=== PATIENT | male | born 1985 | race Caucasian/White ===

== ENCOUNTER 2019-02-10 05:10 | Emergency (ER) | payer OTHER ==
[2019-02-10] MEDS ORDERED: DEXAMETHASONE 10 MG/ML VIAL ONE (05:59)
[2019-02-10] MEDS ORDERED: DIAZEPAM 5 MG TABLET ONE (05:59)
[2019-02-10] MEDS ORDERED: MORPHINE 4 MG/ML SYR ONE (06:00)
[2019-02-10] MEDS ORDERED: ONDANSETRON 4 MG/2 ML VIAL ONE (06:00)
[2019-02-10] MEDS ORDERED: NA CHLORIDE 0.9% 1,000 ML ONE (06:00)
[2019-02-10 06:12] LABS: Absolute Lymphocytes (CBC) 1.9 K/uL (0.7-4.9); Absolute Monocytes 1.1 K/uL (0.1-1.3); Absolute Neutrophil 9.4 K/uL (1.8-8.0); Basophils % 0.4 % (0-1.3); Eosinophils % 0.9 % (0-4.4); Hematocrit 45.5 % (39.6-49.0); MPV 9.4 fL (7.6-11.3); Monocytes % 9.1 % (3.3-12.3); RBC Red Blood Cell Count 5.12 M/uL (4.33-5.43)
[2019-02-10] MEDS ORDERED: KETOROLAC 30 MG/ML INJ ONE (06:30)
[2019-02-10 06:36] LABS: Albumin 4.1 g/dL (3.4-5.0); Bilirubin Total 2.9 mg/dL (0.2-1.0); Potassium 3.9 mmol/L (3.5-5.1); Protein, Total 7.2 g/dL (6.4-8.2)
[2019-02-10 07:39] LABS: Urine Blood NEGATIVE (NEG); Urine Glucose NEGATIVE (NEG); Urine Protein NEGATIVE (NEG); Urine Specific Gravity 1.015 (1.005-1.030); Urine pH 7.5 (5.0-7.0)
--- NOTE | 2019-02-10 07:46 | EDPHYS ---
Physician Documentation [facility] Name: Alden Lofton Age: 33 yrs Sex: Male : 1985 Arrival Date: 02/10/2019 Time: 05:11 Bed 8 Private MD: Tristan Barrett ED Physician Wilmer Bain HPI: 02/10 05:41 This 33 yrs old Male presents to ER via Wheelchair with complaints of Hip jaleel Pain - sharp. 05:41 The patient or guardian reports decreased range of motion. jaleel Historical: - Allergies: 05:31 No Known Allergies; aa1 - Home Meds: 05:31 None [Active]; aa1 - PMHx: 05:31 None; aa1 - PSHx: 05:31 None; aa1 - Immunization history:: Flu vaccine is up to date. - Social history:: Smoking status: Patient uses tobacco products, denies chronic smoking, but will smoke occasionally. - Ebola Screening: : No symptoms or risks identified at this time. ROS: 05:41 Constitutional: Negative for fever, chills, and weight loss, Eyes: Negative for injury, jaleel pain, redness, and discharge, ENT: Negative for injury, pain, and discharge, Neck: Negative for injury, pain, and swelling, Cardiovascular: Negative for chest pain, palpitations, and edema, Respiratory: Negative for shortness of breath, cough, wheezing, and pleuritic chest pain, Abdomen/GI: Negative for abdominal pain, nausea, vomiting, diarrhea, and constipation, : Negative for injury, bleeding, discharge, and swelling, MS/Extremity: Negative for injury and deformity, Skin: Negative for injury, rash, and discoloration, Neuro: Negative for headache, weakness, numbness, tingling, and seizure, Psych: Negative for depression, anxiety, suicide ideation, homicidal ideation, and hallucinations, Allergy/Immunology: Negative for hives, rash, and allergies, Endocrine: Negative for neck swelling, polydipsia, polyuria, polyphagia, and marked weight changes, Hematologic/Lymphatic: Negative for swollen nodes, abnormal bleeding, and unusual bruising. 05:41 Back: Positive for decreased range of motion, pain at rest, pain with movement, radiated pain, of the left low back. Exam: 05:41 Constitutional: This is a well developed, well nourished patient who is awake, alert, jaleel and in no acute distress. Head/Face: Normocephalic, atraumatic. Eyes: Pupils equal round and reactive to light, extra-ocular motions intact. Lids and lashes normal. Conjunctiva and sclera are non-icteric and not injected. Cornea within normal limits. Periorbital areas with no swelling, redness, or edema. ENT: Nares patent. No nasal discharge, no septal abnormalities noted. Tympanic membranes are normal and external auditory canals are clear. Oropharynx with no redness, swelling, or masses, exudates, or evidence of obstruction, uvula midline. Mucous membranes moist. Neck: Trachea midline, no thyromegaly or masses palpated, and no cervical lymphadenopathy. Supple, full range of motion without nuchal rigidity, or vertebral point tenderness. No Meningismus. Chest/axilla: Normal chest wall appearance and motion. Nontender with no deformity. No lesions are appreciated. Cardiovascular: Regular rate and rhythm with a normal S1 and S2. No gallops, murmurs, or rubs. Normal PMI, no JVD. No pulse deficits. Respiratory: Lungs have equal breath sounds bilaterally, clear to auscultation and percussion. No rales, rhonchi or wheezes noted. No increased work of breathing, no retractions or nasal flaring. Abdomen/GI: Soft, non-tender, with normal bowel sounds. No distension or tympany. No guarding or rebound. No evidence of tenderness throughout. Male : Normal genitalia with no discharge or lesions. Skin: Warm, dry with normal turgor. Normal color with no rashes, no lesions, and no evidence of cellulitis. MS/ Extremity: Pulses equal, no cyanosis. Neurovascular intact. Full, normal range of motion. Neuro: Awake and alert, GCS 15, oriented to person, place, time, and situation. Cranial nerves II-XII grossly intact. Motor strength 5/5 in all extremities. Sensory grossly intact. Cerebellar exam normal. Normal gait. Psych: Awake, alert, with orientation to person, place and time. Behavior, mood, and affect are within normal limits. 05:41 Back: pain, that is moderate, ROM is painful, normal spinal alignment noted, CVA tenderness, is absent, muscle spasm, is appreciated in the left low back and left mid back, Straight leg raises: right lower extremity does not illicit pain, left lower extremity illicits pain. Vital Signs: 05:31 BP 142 / 85; Pulse 93; Resp 18; Temp 97.2; Pulse Ox 100% on R/A; Weight 88.45 kg; aa1 Height 6 ft. 1 in. (185.42 cm); Pain 8/10; 06:29 BP 121 / 80; Pulse 99; Resp 16; Pulse Ox 95% on R/A; Pain 6/10; aa1 05:31 Body Mass Index 25.73 (88.45 kg, 185.42 cm) aa1 MDM: 05:32 Patient medically screened. [facility] 05:43 Data reviewed: vital signs, nurses notes, lab test result(s), radiologic studies, CT jaleel scan. 02/10 05:41 Order name: CBC with Diff; Complete Time: 06:48 [facility] 02/10 05:41 Order name: Comprehensive Metabolic Panel; Complete Time: 06:48 [facility] 02/10 05:41 Order name: CT Lumbar Spine Wo Con [facility] 02/10 07:21 Order name: Urine Dipstick--Ancillary (enter results); Complete Time: 07:47 02/10 05:41 Order name: Urine Dipstick-Ancillary (obtain specimen); Complete Time: 07:02 [facility] Administered Medications: 05:54 Drug: Valium 5 mg Route: PO; aa1 06:54 Follow up: Response: No adverse reaction; Pain is decreased aa1 05:55 Drug: NS 0.9% 1000 ml Route: IV; Rate: 1 bolus; Site: right antecubital; aa1 05:55 Drug: Zofran 4 mg Route: IVP; Site: right antecubital; aa1 06:55 Follow up: Response: No adverse reaction aa1 05:57 Drug: Decadron - Dexamethasone 10 mg Route: IVP; Site: right antecubital; aa1 06:57 Follow up: Response: No adverse reaction; Pain is decreased aa1 05:58 Drug: morphine 4 mg Route: IVP; Site: right antecubital; aa1 06:58 Follow up: Response: No adverse reaction; Pain is decreased aa1 06:30 Drug: TORadol 30 mg Route: IVP; Site: right antecubital; aa1 07:04 Follow up: Response: No adverse reaction; Pain is decreased aa1 Disposition: 02/10/19 07:46 Discharged to Home. Impression: Low back pain, Sciatica, left side. - Condition is Stable. - Discharge Instructions: Back Pain, Adult, Musculoskeletal Pain, Sciatica, Back Injury Prevention, Vlxd-hj-Qveb, Back Pain, Adult, Ppkf-ks-Iksm, Sciatica, Yozj-rh-Pxxv. - Prescriptions for Ibuprofen 600 mg Oral Tablet - take 1 tablet by ORAL route every 6 hours As needed take with food; 30 tablet. Tylenol- Codeine #3 300-30 mg Oral Tablet - take 2 tablet by ORAL route every 6 hours As needed; 30 tablet. Valium 5 mg Oral Tablet - take 1 tablet by ORAL route every 8 hours As needed; 20 tablet. Dexamethasone 0.5 mg Oral Tablet - take 4 tablet by ORAL route 2 times per day; 40 tablet. - Medication Reconciliation Form, Thank You Letter, Antibiotic Education, Prescription Opioid Use, Work release form form. - Follow up: Tristan Barrett; When: 2 - 3 days; Reason: Recheck today's complaints, Continuance of care, Re-evaluation by your physician. Follow up: Hussein Roche MD; When: 2 - 3 days; Reason: Recheck today's complaints, Continuance of care, Re-evaluation by your physician. - Problem is new. - Symptoms have improved. Signatures: Dispatcher [employer] EDMS Olivia Elmore RN RN aa1 Wilmer Bain MD MD cha Smirch, Shelby, RN RN ss Corrections: (The following items were deleted from the chart) 07:49 07:46 02/10/2019 07:46 Discharged to Home. Impression: Low back pain; Sciatica, left jaleel side. Condition is Stable. Discharge Instructions: Back Pain, Adult, Musculoskeletal Pain, Sciatica, Back Injury Prevention, Mxci-dx-Jbnf, Back Pain, Adult, Xgmm-pq-Egge, Sciatica, Qabq-sa-Wduz. Prescriptions for Ibuprofen 600 mg Oral Tablet - take 1 tablet by ORAL route every 6 hours As needed take with food; 30 tablet, Tylenol-Codeine #3 300-30 mg Oral Tablet - take 2 tablet by ORAL route every 6 hours As needed; 30 tablet, Valium 5 mg Oral Tablet - take 1 tablet by ORAL route every 8 hours As needed; 20 tablet, Dexamethasone 0.5 mg Oral Tablet - take 4 tablet by ORAL route 2 times per day; 40 tablet. and Forms are Medication Reconciliation Form, Thank You Letter, Antibiotic Education, Prescription Opioid Use. Follow up: Tristan Barrett; When: 2 - 3 days; Reason: Recheck today's complaints, Continuance of care, Re-evaluation by your physician. Problem is new. Symptoms have improved. [facility] 08:58 07:49 02/10/2019 07:46 Discharged to Home. Impression: Low back pain; Sciatica, left ss side. Condition is Stable. Discharge Instructions: Back Pain, Adult, Musculoskeletal Pain, Sciatica, Back Injury Prevention, Bylw-ja-Sufg, Back Pain, Adult, Ozwh-np-Jrbo, Sciatica, Pbbn-wx-Cxgt. Prescriptions for Ibuprofen 600 mg Oral Tablet - take 1 tablet by ORAL route every 6 hours As needed take with food; 30 tablet, Tylenol-Codeine #3 300-30 mg Oral Tablet - take 2 tablet by ORAL route every 6 hours As needed; 30 tablet, Valium 5 mg Oral Tablet - take 1 tablet by ORAL route every 8 hours As needed; 20 tablet, Dexamethasone 0.5 mg Oral Tablet - take 4 tablet by ORAL route 2 times per day; 40 tablet. and Forms are Medication Reconciliation Form, Thank You Letter, Antibiotic Education, Prescription Opioid Use. Follow up: Tristan Barrett; When: 2 - 3 days; Reason: Recheck today's complaints, Continuance of care, Re-evaluation by your physician. Follow up: Hussein Roche; When: 2 - 3 days; Reason: Recheck today's complaints, Continuance of care, Re-evaluation by your physician. Problem is new. Symptoms have improved. jaleel
--- NOTE | 2019-02-10 07:46 | ER ---
Nurse's Notes [facility] Name: Alden Lofton Age: 33 yrs Sex: Male : 1985 Arrival Date: 02/10/2019 Time: 05:11 Bed 8 Private MD: Tristan Barrett Diagnosis: Low back pain;Sciatica, left side Presentation: 02/10 05:26 Presenting complaint: Patient states: he has been having minor L leg pain x 1 mo but he aa1 woke up to use the restroom this morning and when he stood up his leg hurt so badly that it caused him to fall back onto the bed. C/O L leg pain 8/10 and unable to bear weight. CMS intact. Transition of care: patient was not received from another setting of care. Onset of symptoms was December 2018. Risk Assessment: Do you want to hurt yourself or someone else? Patient reports no desire to harm self or others. Initial Sepsis Screen: Does the patient meet any 2 criteria? No. Patient's initial sepsis screen is negative. Does the patient have a suspected source of infection? No. Patient's initial sepsis screen is negative. Care prior to arrival: None. 05:26 Method Of Arrival: Wheelchair aa1 05:26 Acuity: JUAN 3 aa1 Historical: - Allergies: 05:31 No Known Allergies; aa1 - Home Meds: 05:31 None [Active]; aa1 - PMHx: 05:31 None; aa1 - PSHx: 05:31 None; aa1 - Immunization history:: Flu vaccine is up to date. - Social history:: Smoking status: Patient uses tobacco products, denies chronic smoking, but will smoke occasionally. - Ebola Screening: : No symptoms or risks identified at this time. Screenin:32 Abuse screen: Denies threats or abuse. Denies injuries from another. Nutritional aa1 screening: No deficits noted. Tuberculosis screening: No symptoms or risk factors identified. Fall Risk None identified. Assessment: 05:32 General: Appears in no apparent distress. uncomfortable, Behavior is calm, cooperative, aa1 appropriate for age. Pain: Complains of pain in left gluteus adin and left leg Pain currently is 8 out of 10 on a pain scale. Quality of pain is described as shooting, Is continuous. Neuro: Level of Consciousness is awake, alert, obeys commands, Oriented to person, place, time, situation, Moves all extremities. Respiratory: Airway is patent Respiratory effort is even, unlabored, Respiratory pattern is regular, symmetrical. GI: No signs and/or symptoms were reported involving the gastrointestinal system. : No signs and/or symptoms were reported regarding the genitourinary system. EENT: No signs and/or symptoms were reported regarding the EENT system. Derm: Skin is intact, is healthy with good turgor, Skin is pink, warm \T\ dry. Musculoskeletal: Circulation, motion, and sensation intact. Capillary refill < 3 seconds. 06:29 Reassessment: Patient appears in no apparent distress at this time. Patient and/or aa1 family updated on plan of care and expected duration. Pain level reassessed. Patient is alert, oriented x 3, equal unlabored respirations, skin warm/dry/pink. Awaiting CT results. Vital Signs: 05:31 BP 142 / 85; Pulse 93; Resp 18; Temp 97.2; Pulse Ox 100% on R/A; Weight 88.45 kg; aa1 Height 6 ft. 1 in. (185.42 cm); Pain 8/10; 06:29 BP 121 / 80; Pulse 99; Resp 16; Pulse Ox 95% on R/A; Pain 6/10; aa1 05:31 Body Mass Index 25.73 (88.45 kg, 185.42 cm) aa1 ED Course: 05:11 Patient arrived in ED. am2 05:12 Tristan Barrett MD is Private Physician. am2 05:18 Olivia Elmore RN is Primary Nurse. aa1 05:28 Triage completed. aa1 05:31 Arm band placed on right wrist. aa1 05:32 Wilmer Bain MD is Attending Physician. jaleel 05:32 Patient has correct armband on for positive identification. Bed in low position. Call aa1 light in reach. Pulse ox on. NIBP on. 06:25 CT Lumbar Spine Wo Con In Process Unspecified. EDMS 07:00 Report given to Elizabeth Joyce RN. aa1 07:46 Tristan Barrett MD is Referral Physician. jaleel 07:49 Hussein Roche MD is Referral Physician. jaleel Administered Medications: 05:54 Drug: Valium 5 mg Route: PO; aa1 06:54 Follow up: Response: No adverse reaction; Pain is decreased aa1 05:55 Drug: NS 0.9% 1000 ml Route: IV; Rate: 1 bolus; Site: right antecubital; aa1 05:55 Drug: Zofran 4 mg Route: IVP; Site: right antecubital; aa1 06:55 Follow up: Response: No adverse reaction aa1 05:57 Drug: Decadron - Dexamethasone 10 mg Route: IVP; Site: right antecubital; aa1 06:57 Follow up: Response: No adverse reaction; Pain is decreased aa1 05:58 Drug: morphine 4 mg Route: IVP; Site: right antecubital; aa1 06:58 Follow up: Response: No adverse reaction; Pain is decreased aa1 06:30 Drug: TORadol 30 mg Route: IVP; Site: right antecubital; aa1 07:04 Follow up: Response: No adverse reaction; Pain is decreased aa1 Outcome: 07:46 Discharge ordered by MD. marmolejo 08:58 Patient left the ED. ss Signatures: Dispatcher [employer] EDOlivia Barnes RN RN aa1 Wilmer Bain MD MD cha Smirch, Shelby, RN RN ss [facility] [place] am2 Corrections: (The following items were deleted from the chart) 07:03 05:58 Response: No adverse reaction; Pain is decreased aa1 aa1
--- NOTE | 2019-02-10 10:07 | RAD REPORT ---
EXAM DESCRIPTION: Spine Lumbar Wo Con CLINICAL HISTORY: PAIN COMPARISON: None. TECHNIQUE: CT LUMBAR SPINE WITHOUT IV CONTRAST on 02/10/2019 5:41 AM CDT This exam was performed according to our departmental dose-optimization program, which includes autom ated exposure control, adjustment of the mA and/or kV according to patient size and/or use of iterati ve reconstruction technique. FINDINGS: There is no acute fracture. Alignment is anatomic. Disc spaces are maintained. Vertebral body heights are preserved. Soft tissues are unremarkable. IMPRESSION: No acute fracture or subluxation. Electronically signed by: Donavan Bowser MD 02/10/2019 6:54 AM CDT Due to temporary technical issues with the PACS/Fluency reporting system, reports are being signed by the in house radiologist as a courtesy to ensure prompt reporting. The interpreting radiologist is f ully responsible for the content of the report.
== END 2019-02-10 08:58 | disposition home or self-care (01) ==
LOC: ER 05:10
DX: M54.32 Sciatica, left side (principal); Z72.0 Tobacco use
CPT/HCPCS: 36415; 72131; 80053; 81003; 85025; J1100; J2405; J7030

== ENCOUNTER 2020-08-05 01:20 | Emergency (ER) | payer OTHER, SELFPAY ==
--- OUTSIDE RECORDS SUMMARY | 2020-08-05 01:22 | XMS REPORT | Continuity of Care Document ---
:1985 Author Organization [facility] t Address [address] [place] [address] Care Team Providers Name Role Phone Pob1, [facility] Attending Clinician Unavailable Problems This patient has no known problems. Allergies, Adverse Reactions, Alerts This patient has no known allergies or adverse reactions. Medications This patient has no known medications. Procedures This patient has no known procedures. Encounters Start End Encounter Admission Attending Care Care Encounter Source Date/Time Date/Time Type Type Clinicians Facility Department ID 2020-05-01 2020-05-01 Urgent Pob1, Acute [facility] [id number] 12:39:02 13:07:13 [facility] [id number] [place] [id number] Michelle [id number] [address] Results This patient has no known results.
[2020-08-05] MEDS ORDERED: LIDOCAINE 1% MPF 5 ML VIAL ONE (01:49)
--- NOTE | 2020-08-05 02:17 | EDPHYS ---
Physician Documentation [facility] Name: Alden Lofton Age: 35 yrs Sex: Male : 1985 Arrival Date: 08/05/2020 Time: 01:23 Bed 5 Private MD: ED Physician Emanuel Mcfarlane HPI: 08/05 01:48 This 35 yrs old Male presents to ER via Ambulatory with complaints of Wrist rn laceration. 01:48 The patient or guardian reports a laceration, 2 cm(s), ragged. The complaints affect rn the left wrist diffusely. Onset: The symptoms/episode began/occurred just prior to arrival. Modifying factors: The symptoms are alleviated by nothing, the symptoms are aggravated by nothing. The patient has not experienced similar symptoms in the past. Reports asleep, accidnetally hit glass on his nightstand, broke and cut his wrist, does not feel foreign body, no weakness, no numbness, no arterial bleeding. Went to [email or web address] and they wanted $650, so came here instead. . Historical: - Allergies: :28 No Known Allergies; mg2 - Home Meds: :28 None [Active]; mg2 - PMHx: : None; mg2 - PSHx: :28 None; mg2 - Immunization history:: Flu vaccine is not up to date. Last tetanus immunization: up to date. - Social history:: Smoking status: Patient denies any tobacco usage or history of. Patient/guardian denies using alcohol, street drugs, IV drugs. - Family history:: not pertinent. - Hospitalizations: : No recent hospitalization is reported. ROS: 01:48 MS/Extremity: + laceration to left wrist Skin: + laceration to left wrist Neuro: rn Negative for headache, weakness, numbness, tingling, and seizure. Exam: 01:48 Constitutional: This is a well developed, well nourished patient who is awake, alert, rn and in no acute distress. Cardiovascular: Regular rate and rhythm. No pulse deficits. MS/ Extremity: Pulses equal, no cyanosis. Neurovascular intact. Full, normal range of motion. Equal circumference. 2cm ragged laceration left wrist, volar surface, near radial side. Radial artery strong and equal. No active bleeding. No foreign body identified. Vital Signs: 01:27 Pulse 60; Resp 18; Temp 98.5; Pulse Ox 100% on R/A; Weight 83.91 kg; mg2 01:47 BP 133 / 90; mg2 Laceration: 02:14 Wound Repair of 2cm ( 0.8in ) subcutaneous laceration to left wrist. Distal rn neuro/vascular/tendon intact. Anesthesia: Wound infiltrated with 3 mls of 1% lidocaine. Wound prep: Extensive cleansing by nurse, Wound irrigation by nurse, Wound explored extensively. Skin closed with 4 3-0 Prolene using interrupted sutures and sterile technique. Dressed with steri-strips. Patient tolerated well. MDM: 01:24 Patient medically screened. rn 02:14 Differential diagnosis: laceration. Data reviewed: vital signs, nurses notes, rn radiologic studies, plain films, and as a result, I will discharge patient. Test interpretation: by ED physician or midlevel provider: plain radiologic studies, No foreign body identified, no fracture. Counseling: I had a detailed discussion with the patient and/or guardian regarding: the historical points, exam findings, and any diagnostic results supporting the discharge/admit diagnosis, radiology results, the need for outpatient follow up. Response to treatment: the patient's symptoms have markedly improved after treatment, and as a result, I will discharge patient. Special discussion: I discussed with the patient/guardian in detail that at this point there is no indication for admission to the hospital. It is understood, however, that if the symptoms persist or worsen the patient needs to return immediately for re-evaluation. 08/05 01:36 Order name: XRAY Wrist LEFT 3 view rn 08/05 01:37 Order name: Suture Tray at Bedside; Complete Time: :38 rn 08/05 01:37 Order name: Sutures, Prolene; Complete Time: :38 rn Administered Medications: 02:04 Drug: Lidocaine (1 %) 1 vials {Note: administered by the provider.} Volume: 5 ml; mg2 Route: Infiltration; Disposition: 08/05/20 02:16 Discharged to Home. Impression: Superficial left wrist laceration. - Condition is Stable. - Discharge Instructions: Laceration Care, Adult. - Medication Reconciliation Form, Thank You Letter, Antibiotic Education, Prescription Opioid Use form. - Follow up: Private Physician; When: 14 days; Reason: Staple/Suture removal. - Problem is new. - Symptoms have improved. Signatures: Dispatcher [employer] EDMS Emanuel Mcfarlane MD MD rn Gardose, Michele, RN RN mg2 Corrections: (The following items were deleted from the chart) 02:23 02:16 08/05/2020 02:16 Discharged to Home. Impression: Superficial left wrist mg2 laceration. Condition is Stable. Forms are Medication Reconciliation Form, Thank You Letter, Antibiotic Education, Prescription Opioid Use. Follow up: Private Physician; When: 14 days; Reason: Staple/Suture removal. Problem is new. Symptoms have improved. rn
--- NOTE | 2020-08-05 02:17 | ER ---
Nurse's Notes [facility] Name: Alden Lofton Age: 35 yrs Sex: Male : 1985 Arrival Date: 08/05/2020 Time: : Bed 5 Private MD: Diagnosis: Superficial left wrist laceration Presentation: 08/05 01:27 Chief complaint: Patient states: i was sleeping and accidentally rolled over on the mg2 side of the bed and my wrist hit the broken glass of the side table. Coronavirus screen: Client denies travel out of the [place] in the last 14 days. At this time, the client does not indicate any symptoms associated with coronavirus-19. Ebola Screen: No symptoms or risks identified at this time. Initial Sepsis Screen: Does the patient meet any 2 criteria? No. Patient's initial sepsis screen is negative. Does the patient have a suspected source of infection? No. Patient's initial sepsis screen is negative. Risk Assessment: Do you want to hurt yourself or someone else?. Onset of symptoms was August 05, 2020. 01: Method Of Arrival: Ambulatory mg2 : Acuity: JUAN 4 mg2 Triage Assessment: : General: Appears in no apparent distress. comfortable, Behavior is calm, cooperative. mg2 Pain: Complains of pain in left wrist. EENT: No signs and/or symptoms were reported regarding the EENT system. Neuro: Level of Consciousness is awake, alert, obeys commands, Oriented to person, place, time, situation. Cardiovascular: Capillary refill < 3 seconds Patient's skin is warm and dry. Respiratory: Airway is patent Respiratory effort is even, unlabored, Respiratory pattern is regular, symmetrical. GI: No signs and/or symptoms were reported involving the gastrointestinal system. : No signs and/or symptoms were reported regarding the genitourinary system. Derm: Wound noted left wrist Wound is fresh laceration. Musculoskeletal: Circulation, motion, and sensation intact. Capillary refill < 3 seconds. Historical: - Allergies: : No Known Allergies; mg2 - Home Meds: None [Active]; mg2 - PMHx: : None; mg2 - PSHx: : None; mg2 - Immunization history:: Flu vaccine is not up to date. Last tetanus immunization: up to date. - Social history:: Smoking status: Patient denies any tobacco usage or history of. Patient/guardian denies using alcohol, street drugs, IV drugs. - Family history:: not pertinent. - Hospitalizations: : No recent hospitalization is reported. Screenin:29 Abuse screen: Denies threats or abuse. Denies injuries from another. Nutritional mg2 screening: No deficits noted. Tuberculosis screening: No symptoms or risk factors identified. Fall Risk None identified. Assessment: : Reassessment: see triage nbote. mg2 Vital Signs: 01:27 Pulse 60; Resp 18; Temp 98.5; Pulse Ox 100% on R/A; Weight 83.91 kg; mg2 01:47 BP 133 / 90; mg2 ED Course: 01:23 Patient arrived in ED. mr 01:24 Emanuel Mcfarlane MD is Attending Physician. rn 01:27 Soren Mendosa RN is Primary Nurse. mg2 01:28 Triage completed. mg2 01:28 Arm band placed on. mg2 :29 Patient has correct armband on for positive identification. mg2 01:53 XRAY Wrist LEFT 3 view In Process Unspecified. EDMS 02:04 Assist provider with laceration repair on left wrist that was 2.5 cm. or less using mg2 sutures. Set up tray. Performed by Emanuel Mcfarlane MD Dressed with 4X4s, Patient tolerated well. Patient did not have IV access during this emergency room visit. Administered Medications: 02:04 Drug: Lidocaine (1 %) 1 vials {Note: administered by the provider.} Volume: 5 ml; mg2 Route: Infiltration; Outcome: 02:16 Discharge ordered by . rn 02:22 Discharged to home ambulatory. mg2 02:22 Condition: stable 02:22 Discharge instructions given to patient, Instructed on discharge instructions, follow up and referral plans. medication usage, wound care, Demonstrated understanding of instructions, follow-up care, wound care. 02:23 Patient left the ED. mg2 Signatures: Dispatcher [employer] [facility] DouglasCalli Emanuel Mcfarlane MD MD rn Gardose, Michele, RN RN mg2 Corrections: (The following items were deleted from the chart) 01:37 01:27 83.91 kg; mg2 mg2
[2020-08-05 02:38] VITALS: TEMP 98.5; O2SAT 100
[2020-08-05 02:39] VITALS: BP 133/90
--- NOTE | 2020-08-05 08:04 | RAD REPORT ---
EXAM DESCRIPTION: RAD - Wrist Left 3 View - 08/05/2020 1:53 am CLINICAL HISTORY: Left wrist pain status post injury FINDINGS: No fracture or dislocation is seen. A laceration involves posterolateral distal forearm A radiopaque foreign body is not visualized
== END 2020-08-05 02:23 | disposition home or self-care (01) ==
LOC: ER 01:20
PROC: 0JQH0ZZ Repair Left Lower Arm Subcutaneous Tissue and Fascia, Open Approach (ICD-10-PCS; principal; 2020-08-05)
DX: S61.512A Laceration without foreign body of left wrist, initial encounter (principal); W25.XXXA Contact with sharp glass, initial encounter; Y93.89 Activity, other specified; Y92.9 Unspecified place or not applicable
CPT/HCPCS: 99283